=== PATIENT | male | born 1980 | race Caucasian/White ===

== ENCOUNTER 2016-12-23 10:37 | Emergency (ER) | payer OTHER ==
[~2016-12-23] VITALS: Ht 180.3 cm; Wt 117.4 kg
[2016-12-23 10:40] VITALS: TEMP 36.5; Ht 180.3 cm; Wt 117.4 kg
[2016-12-23] MEDS ORDERED: XYLOCAINE 1%/SOD BICARB 20 ML VIAL INFIL ONE (11:15)
--- NOTE | 2016-12-23 11:15 | EMERGENCY ROOM VISIT NOTE ---
ED Visit Note First contact with patient: 11:01 CHIEF COMPLAINT: Finger laceration and abdomen laceration HISTORY OF PRESENT ILLNESS: This 36-year-old male patient presents to the emergency department after cutting the right fourth finger and abdominal wall this morning. Patient states he was moving a piece of glass, which slipped and broke in pieces, slicing his finger and also cutting his abdomen. The patient was seen at an urgent care who sent him to the ED for further evaluation. The bleeding has been controlled. Denies weakness or numbness of the finger. The patient rates the pain as throbbing and 6/10. Minimal bleeding from the laceration on the abdomen and he states it is not painful. The patient denies any other injuries. The patient's Tetanus shot is not up to date. REVIEW OF SYSTEMS: A 6 system review of systems was completed with positives and pertinent negatives listed in the HPI. ALLERGIES: See chart MEDICATIONS: See chart PMH: See chart SOCIAL HISTORY: See chart PHYSICAL EXAM: Vital Signs: Reviewed Nurse's notes, vital signs stable. GENERAL : Pleasant and cooperative, in no acute distress, well-developed, well- nourished. SKIN: There is a 4 cm long laceration on the palmar aspect of the distal right fourth finger. The laceration is deep, extending down to the bone , with the entire finger pad is advised away from the bone. The laceration extends through the lateral cuticle, the nail and nailbed are otherwise spared. The edges gape apart with traction. There wound was meticulously explored with no foreign material found in the wound and it looks clean. There is moderate bleeding. No deep structures such as tendons or significant blood vessels are seen in the base of the wound. Normal strength and movement of the distal finger, with extension and flexion of the distal finger fully intact. Capillary refill less than 2 seconds. Normal sensation to light and sharp touch. There is also a 1 cm long laceration noted on the right upper abdominal wall, extending into the subcutaneous tissue. There are no deep structures such as tendons or significant blood vessels seen in the base of the wound. There is minimal bleeding from the wound. There is normal sensation of the tissue surrounding the wound. No foreign body found in the wound and it appears to be clean. EMERGENCY DEPARTMENT COURSE: I examined the patient. Verbal consent was obtained to perform the procedure. Using sterile technique the wound was cleansed with Betadine. The area was sterilely draped. 3 ml of 1% buffered lidocaine was used to perform digital block at the base of the right fourth finger for anesthesia. Once the patient was anesthetized, the wound was copiously irrigated under pressure with sterile saline. The wound was explored and was as described above. The laceration was repaired using 2 4-0 Vicryl internal stitches due to the significant depth of the laceration, and 8 simple interrupted 5-0 nylon sutures with the wound edges being well approximated. The patient tolerated the procedure well. Hemostasis was achieved. The area was cleaned with sterile saline and dressed with bacitracin ointment and bandage. Attention was then turned to the small laceration on the patient's abdominal wall. Using sterile technique the wound was cleansed with Betadine. The area was sterilely draped. 1 ml of 1% buffered lidocaine was used to anesthetize the laceration on the abdomen. Once the patient was anesthetized, the wound was copiously irrigated under pressure with sterile saline. The wound was explored and was as described above. The laceration was repaired using 3 simple interrupted 5-0 nylon sutures with the wound edges being well approximated. The patient tolerated the procedure well. Hemostasis was achieved. The area was cleaned with sterile saline and dressed with bacitracin ointment and bandage. The patient was given Td immunization. The patient was discharged home in good condition. Current/Historical Medications Scheduled Cephalexin Monohydrate (Keflex), 500 MG PO QID Allergies Coded Allergies: No Known Allergies (Unverified , 12/23/16) Vital Signs Date Time Temp Pulse Resp B/P (MAP) Pulse Ox O2 Delivery O2 Flow Rate FiO2 12/23/16 13:02 70 141/79 96 Room Air 12/23/16 10:40 36.5 81 17 135/84 95 Room Air Medications Administered Medications (Trade) Dose Ordered Sig/Hugh Route Start Time Stop Time Status Last Admin Dose Admin Diphtheria/ Pertussis/Tetanus Vacc (Adacel Inj) 0.5 ml ONCE ONCE IM. 12/23/16 11:45 12/23/16 11:46 DC 12/23/16 13:07 0.5 ML Cephalexin Monohydrate (Keflex Cap) 500 mg NOW ONCE PO 12/23/16 13:00 12/23/16 13:01 DC 12/23/16 13:07 500 MG Departure Information Impression Primary Impression: Laceration of right ring finger Additional Impression: Laceration of abdominal wall Dispostion Home / Self-Care Condition GOOD Prescriptions Cephalexin Monohydrate (Keflex) 500 Mg Cap 500 MG PO QID for 5 Days, #20 CAP Prov: Corinna IsidroTEMITOPE 12/23/16 Referrals No Doctor, Assigned (PCP) Marty Hu MD Patient Instructions ED Laceration Hand, [facility] Additional Instructions Follow-up with your PCP, in urgent care, or ER for suture removal in 10-12 days. Keep the finger splint in place to prevent further injury to your finger or pulling on sutures. He should remove the bandage once a day to clean with soap and water, pat dry, keep covered with antibiotic ointment and a bandage. Keep both wounds clean and dry. Do not allow any crusting or dried blood to accumulate on sutures. If this occurs, use a 1:1 solution of hydrogen peroxide/ water on a Q-tip to clean the wound. On the laceration on her abdomen, you may use an antibiotic ointment for 3-4 days, then let wound dry and open to air. Ice and elevate for swelling and pain. Tylenol 1000 mg every 8 hrs as needed for pain. Avoid NSAID such as aspirin, Aleve, Advil, ibuprofen, etc. You were prescribed Keflex to be taken 4 times a day for 5 days. This is an antibiotic, prescribed to help prevent infection in your finger. All antibiotics have the potential to cause diarrhea. Stop this medication and contact a medical provider if you were to develop any significant adverse side effects including: wheezing, shortness of breath, passing out, vomiting, or a diffuse rash. Always take antibiotics as directed and COMPLETE the ENTIRE course regardless of the improvement of your symptoms. Follow-up with Dr. Hu, orthopedic hand specialist, within the next few days to have your finger rechecked. Keep covered when in sun until sutures removed then SPF 50 or higher for one year. Vitamin E oil if desired two weeks after suture removal for reduction of scar. Please seek immediate medical attention for any signs of infection (increasing redness, swelling, pus drainage, streaking up the arm, fever/chills). Problem Qualifiers Primary Impression: Laceration of right ring finger Encounter type: initial encounter Damage to nail status: with damage Foreign body presence: without foreign body Qualified Codes: S61.314A - Laceration without foreign body of right ring finger with damage to nail, initial encounter Additional Impression: Laceration of abdominal wall Encounter type: initial encounter Qualified Codes: S31.119A - Laceration without foreign body of abdominal wall, unspecified quadrant without penetration into peritoneal cavity, initial encounter
--- NOTE | 2016-12-23 11:30 | DIAGNOSTIC IMAGING REPORT ---
RIGHT FOURTH FINGER 3 VIEWS CLINICAL HISTORY: Laceration COMPARISON: None. DISCUSSION: The fine bony detail is obscured by an overlying bandage. No definite fractures or dislocations are visualized. Radiopaque densities are present within the soft tissue. It is unclear whether these reflect foreign body fragments, or a small fracture fragment. If desired, a repeat examination without the dressing could be obtained IMPRESSION: 1. Technically limited study due to an overlying dressing 2. Radiopaque densities within the soft tissues, likely representing foreign body material, although a fracture fragment cannot be excluded with certainty Electronically signed by: Harley Gonsalves M.D. 12/23/2016 11:28 AM Dictated Date/Time: 12/23/2016 11:26 AM
[2016-12-23] MEDS ORDERED: DIPHTHERIA/TETANUS/PERTUSSIS 0.5 ML SYR/VIAL IM. ONE (11:45)
[2016-12-23] MEDS ORDERED: CEPH500C PO (12:51)
[2016-12-23] MEDS ORDERED: CEPHALEXIN MONOHYDRATE 250 MG CAP PO ONE (13:00)
[2016-12-23 13:02] VITALS: BP 141/79; PULSE 70; O2SAT 96
== END 2016-12-23 13:19 | disposition home or self-care (01) ==
LOC: C.EDB 10:41 → C.EDD 13:19
DX: S61.214A Laceration without foreign body of right ring finger without damage to nail, initial encounter (principal); S31.119A Laceration without foreign body of abdominal wall, unspecified quadrant without penetration into peritoneal cavity, initial encounter; W45.8XXA Other foreign body or object entering through skin, initial encounter; Z23 Encounter for immunization